=== PATIENT | female | born 1970 | race Caucasian/White ===

== ENCOUNTER 2024-12-20 21:14 | Emergency (ER) | payer BC, SELFPAY ==
[2024-12-20 21:20] VITALS: BP 146/87
[2024-12-20 23:52] VITALS: BMI 34.4
--- NOTE | 2024-12-20 23:55 | ED.GENMED ---
History of Present Illness
General
Chief Complaint: Eye Problems
Source: patient
Time Seen by Provider: 12/20/24 23:38
History of Present Illness
History of Present Illness:
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
slight. Patient states she is not sure as to how she developed the blood as she notes she did not strain, no trauma, no vision changes, denies any anticoagulants. Patient without any other concerns.
Past History
Past History
ED Past Medical History: Hypercholesterolemia and Other (Right carotid aneurysm)
ED Past Surgical History: None
Social History
Tobacco: Non-smoker
Alcohol: Occasional
Drug: None
Personal:
Living: with family
Employment: Employed
Review of Systems
Review of Systems
All Other Systems: ROS reviewed and negative except as documented in HPI and ROS
Phy Exam
Physical Exam
Physical Exam:
GENERAL: Alert , in no apparent distress
EYE: Right eye subconjunctival hemorrhage along the lateral aspect of the sclera, no hyphema, pupils 4 mm bilateral, PERRL, EOMI. There is no periorbital edema or ecchymosis or erythema
Head: Normocephalic atraumatic
NECK: Supple
ENT: mmm.
LUNGS: no acute respiratory distress
NEUROLOGICAL: Alert and oriented
SKIN: Warm and dry, skin intact.
MUSCULOSKELETAL: well perfused.
PSYCH: Normal and appropriate interaction.
Scores
Heart Failure Risk
Heart Failure Risk Score: Not Applicable
Heart Score for Chest Pain Patients
STEMI patient?: Not applicable
Withdrawal Assessment of Alcohol
Withdrawal Assessment Completed?: Not applicable
Course
Orders/Labs/Results
Orders:
Orders
12/20/24 21:30
CT Head W/o Iv Contrast Urgent
Comment:
Reason For Exam: Headache
Vital Signs
Initial and Last Documented VS:
Initial Vital Signs
Temp Pulse Resp BP Pulse Ox
97.6 F 66 18 146/87 100
12/20/24 21:20 12/20/24 21:20 12/20/24 21:20 12/20/24 21:20 12/20/24 21:20
Last Documented Vital Signs
Temp Pulse Resp BP Pulse Ox
97.6 F 88 16 157/78 100
12/20/24 21:20 12/20/24 23:57 12/20/24 23:57 12/20/24 23:57 12/20/24 23:57
MDM/Problems Addressed
Differential Diagnosis Includes:
Nontraumatic subconjunctival hemorrhage, I do not have concern for infectious etiology such as a preseptal cellulitis or orbital cellulitis, no concern for traumatic hyphema, overall I do not have concern for intracranial pathology
MDM/Problems Addressed:
54-year-old female presenting the ER for evaluation of what appears to be a right-sided subconjunctival hemorrhage. A head CT was ordered on patient's arrival due to her history of aneurysm although I have no suspicion that aneurysm is cause for
patient's symptoms. CT of the head is unremarkable and shows no acute intracranial pathology. Patient advised that the subconjunctival hemorrhage will resolve on its own in 2 to 3 weeks. She is otherwise stable for discharge home and aware of
return precautions to the ER
*Pulse Oximetry
Patient hypoxic: no
*Critical Care Note
Total Time (30-74mins, 75-104mins- exclusive of procedures): Not Applicable
ED Attending Note
-
Portions of this chart may have been created with voice recognition software.� Occasional wrong word or��sound alike� substitutions may have occurred due to the inherent limitations of voice recognition software.
Discharge Plan
Departure
Patient Disposition: Home (Routine Discharge)
Date of Disposition: 12/20/24
Time of Disposition: 23:55
Patient with high blood pressure during this ER visit?: Yes
Discharge Problem:
Subconjunctival hemorrhage of right eye
Instructions: Subconjunctival hemorrhage
Interventions
Interventions:
*Risk Screen - Suicide Last Done: 12/20/24 21:20
*General Assessment Last Done: 12/20/24 21:20
*Neglect/Abuse Screening Last Done: 12/20/24 21:20
*ED- Fall Risk Assessment Last Done: 12/20/24 23:52
*ED COVID-19 Vaccine History Last Done: 12/20/24 21:20
*Nursing Disposition Last Done: 12/21/24 00:00
Discharge Date and Time
Discharge Date/Time: 12/21/24 00:08
Print Language: SERBIAN
[2024-12-20 23:57] VITALS: BP 157/78
== END 2024-12-21 00:08 | disposition home or self-care (01) ==
LOC: EMR 21:14
PROVIDERS: EMERGENCY PHYSICIAN Student in an Organized Health Care Education/Training Program; FAMILY PHYSICIAN Physician Assistant
DX: H11.31 Conjunctival hemorrhage, right eye (principal); E78.00 Pure hypercholesterolemia, unspecified; I72.0 Aneurysm of carotid artery
CPT/HCPCS: 99284; 70450